=== PATIENT | female | born 1950 | race Caucasian/White ===

== ENCOUNTER 2021-09-04 09:52 | Day surgery (SDC) | payer MEDICARE, OTHER, SELFPAY ==
[2021-08-30 09:59] VITALS: BMI 44.5
--- NOTE | 2021-09-01 12:42 | HO.ANESPROP2 ---
Documented by User: Rosina Kirkpatrick NP 09/01/21 12:43 HPI - Anesthesia Eval Consult details Narrative: 71yo F for Colonoscopy with antibiotics, Eliquis for PE/DVT, [place] filter in situ PMFSH Past Medical History Medical History (Updated 09/04/21 @ 11:01 by Tammy Ojeda, JUAN) Elevated cholesterol GERD (gastroesophageal reflux disease) Fiona filter in place History of DVT (deep vein thrombosis) Surgical History Surgical History (Updated 09/04/21 @ 10:24 by Tammy Ojeda RN) History of back surgery History of bilateral knee replacement History of esophagogastroduodenoscopy (EGD) History of total abdominal hysterectomy Hx of appendectomy Hx of colonoscopy Hx of foot surgery Hx of shoulder surgery Hx of tonsillectomy Social History Social History Patient Tobacco Use Status: Former Tobacco user Quit Date: >50 yrs ago Use of substances other than those prescribed or required for medical reasons: No Are you DNR?: No Advance Directives: No Advance Directives Information Provided: Yes Meds Allergies Allergy/AdvReac Type Severity Reaction Status Date / Time Penicillins Allergy Itching, Verified 09/04/21 11:04 mouth itching codeine AdvReac Migraine Verified 09/04/21 11:04 morphine AdvReac Migraine Verified 09/04/21 11:04 Home Medications Medication Instructions Recorded Confirmed Last Taken Type apixaban 2.5 mg tablet (Eliquis) 1 tab PO BID 08/30/21 08/30/21 08/31/21 History atorvastatin 40 mg tablet 1 tab PO DAILY 08/30/21 08/30/21 Unknown History celecoxib 200 mg capsule 1 cap PO DAILY 08/30/21 08/30/21 08/28/21 History furosemide 20 mg tablet 1 tab PO DAILY PRN 08/30/21 Unknown History lansoprazole 15 mg capsule,delayed 1 cap PO DAILY 08/30/21 08/30/21 Unknown History release sumatriptan succinate 50 mg tablet 1 tab PO DAILY PRN 08/30/21 08/30/21 Unknown History Exam Exam Date and Time: September 01, 2021 1242 Height,Weight and Vital Signs: Height 5 ft 0.5 in Weight 105.233 kg Assessment and Plan Assessment Anesthesia Assessment: Chart Reviewed Documented by User: Austin Mclaughlin MD 09/04/21 16:14 HPI - Anesthesia Eval Consult details Narrative: 71yo F for Colonoscopy with antibiotics, Eliquis for PE/DVT, aftrt Sx Fiona filter in situ off Apixaban for 3 days , not bridged . anti coagulation being managed by PCP [facility] Past Medical History Medical History (Updated 09/04/21 @ 11:01 by Tammy Ojeda RN) Elevated cholesterol GERD (gastroesophageal reflux disease) [place] filter in place History of DVT (deep vein thrombosis) Functional capacity: independent ambulation Family History Family history of problems with anesthesia: No Surgical History Surgical History (Updated 09/04/21 @ 10:24 by Tammy Ojeda RN) History of back surgery History of bilateral knee replacement History of esophagogastroduodenoscopy (EGD) History of total abdominal hysterectomy Hx of appendectomy Hx of colonoscopy Hx of foot surgery Hx of shoulder surgery Hx of tonsillectomy History of Problems with Anesthesia: No Social History Social History Patient Tobacco Use Status: Former Tobacco user Quit Date: >50 yrs ago Use of substances other than those prescribed or required for medical reasons: No Are you DNR?: No Advance Directives: No Advance Directives Information Provided: Yes Meds Allergies Allergy/AdvReac Type Severity Reaction Status Date / Time Penicillins Allergy Itching, Verified 09/04/21 11:04 mouth itching codeine AdvReac Migraine Verified 09/04/21 11:04 morphine AdvReac Migraine Verified 09/04/21 11:04 Home Medications Medication Instructions Recorded Confirmed Last Taken Type apixaban 2.5 mg tablet (Eliquis) 1 tab PO BID 08/30/21 08/30/21 08/31/21 History atorvastatin 40 mg tablet 1 tab PO DAILY 08/30/21 08/30/21 Unknown History celecoxib 200 mg capsule 1 cap PO DAILY 08/30/21 08/30/21 08/28/21 History furosemide 20 mg tablet 1 tab PO DAILY PRN 08/30/21 Unknown History lansoprazole 15 mg capsule,delayed 1 cap PO DAILY 08/30/21 08/30/21 Unknown History release sumatriptan succinate 50 mg tablet 1 tab PO DAILY PRN 08/30/21 08/30/21 Unknown History Exam Airway Mallampati Class: II TM Dist: >3cm Neck ROM: Full Loose/Missing/Broken Teeth: Yes (Chipped teeth ) Heart: S1, S2 Lungs: b/l breath sounds Assessment and Plan Assessment Anesthesia Assessment: Anesthesia Plan Discussed Final Anesthetic Review Family History of Problems with Anesthesia: No History of Problems with Anesthesia: No NPO: Yes ASA Class: III Final Preanesthetic Review: Meds/Allgs Chart Reviewed, Consent Obtained/Reviewed and Anes Risks/Benef Reviewed Patient Risk: High Procedure Risk: Intermediate Anesthetic Plan Anesthetic Plan: MAC: Disposition: Standard PACU
[2021-09-04] MEDS: Lactated Ringers 1,000 ML 100 ML IVCONT (10:51)
[2021-09-04] MEDS: vancomycin HCL 1,500 MG in 0.9 % Sodium Chloride 500 ML 333.33 MG IV (10:53)
[2021-09-04 11:05] VITALS: BP 142/65; PULSE 81; RESP 18; TEMP 36.6; O2SAT 98
[2021-09-04 13:00] VITALS: BP 109/56; PULSE 91; RESP 16; TEMP 36.6; O2SAT 98
--- NOTE | 2021-09-04 13:01 | PM.OP ---
Brief Operative Note Date of Service: 09/04/21 Pre-op diagnosis: Screening Post-op diagnosis: other (Diverticulosis) Procedure: Colonoscopy to the cecum and TI Surgeon: Volodymyr Bedoya Anesthesia: MAC Was an Transportation Department Supervisor used for this Procedure?: No Estimated blood loss (mL): 0 Pathology: none sent Condition: stable Disposition: PACU
[2021-09-04 13:15] VITALS: BP 128/73; PULSE 83; RESP 16; TEMP 36.6; O2SAT 100
--- NOTE | 2021-09-05 02:41 | OP_ITS ---
SURGEON: Volodymyr Bedoya MD INDICATIONS: The patient presents for evaluation of colorectal cancer screening and personal history of tubular adenoma of the colon. Full consent has been obtained from her for this, including risks of bleeding and perforation. PREOPERATIVE DIAGNOSIS: POSTOPERATIVE DIAGNOSIS: PROCEDURE PERFORMED: Colonoscopy to cecum and terminal ileum. ESTIMATED BLOOD LOSS: COMPLICATIONS: ANESTHESIA: Medication used, monitored anesthesia care. ASSISTANTS: SPECIMENS: PREOPERATIVE DIAGNOSES: Colorectal cancer screening, personal history of tubular adenoma of the colon. POSTOPERATIVE DIAGNOSES: Colorectal cancer screening, personal history of tubular adenoma of the colon, diverticulosis and internal hemorrhoids. DESCRIPTION OF PROCEDURE: The patient was placed in the left lateral decubitus position the digital rectal exam revealed no abnormalities. The Olympus video pediatric colonoscope was entered into the rectum and advanced to the cecum with the assistance of abdominal wall pressure. Abdominal wall pressure was basically applied from the sigmoid colon all the way to the cecum. Once in the cecum, I did identify normal-appearing cecal pouch with appendiceal orifice and a normal-appearing ileocecal valve. The terminal ileum was cannulated and appeared normal. The scope was withdrawn back in the colon. The entire cecum and ileocecal valve appeared normal. The scope was then slowly withdrawn assessing all mucosal surfaces carefully. Preparation was excellent. I did not visualize any sign of polyps, colitis, nor angiodysplasia. In the rectum, the scope was retroflexed visualizing internal hemorrhoids, but no other pathology. The rectal mucosa appeared normal. The scope was straightened and withdrawn from the patient. She tolerated the procedure well and was returned to the recovery area in stable condition. IMPRESSION: 1. Diverticulosis. 2. Internal hemorrhoids. PLAN: Given her previous history, I would recommend a followup colonoscopy in 5 years. She was advised to resume her Eliquis today. MD MICHAEL Draper/MARGIE / [id number]
== END 2021-09-04 14:03 | disposition home or self-care (01) ==
PROVIDERS: PCP Registered Nurse; Visit Provider Internal Medicine
PROC: 0DJD8ZZ Inspection of Lower Intestinal Tract, Via Natural or Artificial Opening Endoscopic (ICD-10-PCS; CPT 45378; principal; 2021-09-04 11:00)
DX: Z12.11 Encounter for screening for malignant neoplasm of colon (principal); Z86.010 Personal history of colon polyps; K57.30 Diverticulosis of large intestine without perforation or abscess without bleeding; K64.8 Other hemorrhoids; K21.9 Gastro-esophageal reflux disease without esophagitis; Z96.653 Presence of artificial knee joint, bilateral; Z86.718 Personal history of other venous thrombosis and embolism; Z95.828 Presence of other vascular implants and grafts; Z79.02 Long term (current) use of antithrombotics/antiplatelets; Z79.01 Long term (current) use of anticoagulants; Z79.899 Other long term (current) drug therapy; Z88.0 Allergy status to penicillin; Z85.42 Personal history of malignant neoplasm of other parts of uterus; Z87.891 Personal history of nicotine dependence; Z98.890 Other specified postprocedural states
CPT/HCPCS: G0105; J1580; J3370